=== PATIENT | male | born 1930 | race Caucasian/White ===

== ENCOUNTER → 2020-07-06 | Outpatient (CLI) | payer MEDICARE, BC | LOC: RAD 14:05 | PROVIDERS: ATTEND Emergency Medicine | DX: R06.00 Dyspnea, unspecified (principal) | CPT/HCPCS: 71046 ==

== ENCOUNTER → 2022-06-16 | Outpatient (CLI) | payer MEDICARE, BC | LOC: RAD 12:50 | PROVIDERS: ATTEND Emergency Medicine | DX: L03.116 Cellulitis of left lower limb (principal); R60.9 Edema, unspecified | CPT/HCPCS: 93971 ==